=== PATIENT | female | born 1985 | race Hispanic/Latino ===

== ENCOUNTER 2018-04-20 14:11 | Inpatient (IN) | payer OTHER ==
[2018-04-20 16:10] LABS: Hematocrit 35.7 % (30.3-42.9); Hemoglobin 12.6 gm/dl (10.1-14.3); Lymphocytes # (Auto) 0.9 K/mm3 (1.2-5.4); Lymphocytes % (Auto) 10.5 % (13.4-35.0); Mean Corpuscular HGB Conc 35 % (30-34); Mean Corpuscular Hemoglobin 31 pg (28-32); Mean Corpuscular Volume 89 fl (79-97); Monocytes # (Auto) 0.2 K/mm3 (0.0-0.8); Monocytes % (Auto) 2.6 % (0.0-7.3); Platelet Count 231 K/mm3 (140-440); Red Blood Count 4.01 M/mm3 (3.65-5.03); Red Cell Distribution Width 14.5 % (13.2-15.2)
[2018-04-20 16:36] LABS: BUN/Creatinine Ratio 20; Blood Urea Nitrogen 10 mg/dL (7-17); Hemolysis Index 2
--- NOTE | 2018-04-20 17:10 | Emergency Department Report ---
HPI - General Chief Complaint: Medical Clearance Time Seen by Provider: 04/20/18 14:52 - HPI HPI: 33-year-old female presents to the emergency department from [facility] with complaint of some painful left frontal neck swelling. This is been going on since the patient injected herself in the neck with morphine about one week ago. Patient is currently at the psychiatric facility for heroin and Xanax overdose. She denies any fever, nausea, vomiting or shortness of breath or any trouble swallowing. She has a past history of depression, bipolar disorder and hepatitis C. She did not take anything and was not given anything for her symptoms prior to presentation. ED Past Medical Hx - Past Medical History Hx Psychiatric Treatment: Yes (Depression, Bipolar, Hep C) - Social History Smoking Status: Unknown if ever smoked - Medications Home Medications: Home Medications Medication Instructions Recorded Confirmed Last Taken Type Gabapentin [Neurontin] 300 mg PO Q8HR 04/21/18 04/21/18 Unknown History buPROPion SR [Wellbutrin SR] 100 mg PO BID 04/21/18 04/21/18 Unknown History chlorproMAZINE [Thorazine] 50 mg PO Q6HR 04/21/18 04/21/18 Unknown History hydrOXYzine PAMOATE [Vistaril] 25 mg PO Q6HR PRN 04/21/18 04/21/18 Unknown History predniSONE [Deltasone] 60 mg PO QDAY 04/21/18 04/21/18 Unknown History ED Review of Systems ROS: Stated complaint: LUMP ON NECK Other details as noted in HPI Comment: All other systems reviewed and negative Constitutional: denies: chills, fever Eyes: denies: eye pain, eye discharge, vision change ENT: other (neck pain and swelling). denies: ear pain, throat pain Respiratory: denies: cough, shortness of breath, wheezing Cardiovascular: denies: chest pain, palpitations Gastrointestinal: denies: abdominal pain, nausea, diarrhea Genitourinary: denies: urgency, dysuria, discharge Musculoskeletal: denies: back pain, joint swelling, arthralgia Skin: denies: rash, lesions Neurological: denies: headache, weakness, paresthesias Physical Exam - Physical Exam Vital Signs: Vital Signs 04/20/18 15:07 Temperature 98.3 F Pulse Rate 89 Respiratory 15 Rate Blood Pressure 108/76 [Left] O2 Sat by Pulse 96 Oximetry Physical Exam: GENERAL: The patient is well-developed well-nourished. HENT: Normocephalic. Atraumatic. Patient has moist mucous membranes. Oropharynx is clear. No drooling or trismus. EYES: Extraocular motions are intact. Pupils equal reactive to light bilaterally. NECK: Supple. There is a moderate sized area of swelling to the left anterior side of the neck. It is soft but not necessarily fluctuant. It is tender to palpation. There is no overlying erythema or ecchymosis. CHEST/LUNGS: Clear to auscultation. There is no respiratory distress noted. HEART/CARDIOVASCULAR: Regular. There is no tachycardia. There is no murmur. ABDOMEN: Abdomen is soft, nontender. Patient has normal bowel sounds. There is no abdominal distention. SKIN: Skin is warm and dry. There is a moderate sized area of swelling to the left anterior side of the neck. It is soft but not necessarily fluctuant. It is tender to palpation. There is no overlying erythema or ecchymosis. NEURO: The patient is awake, alert, and oriented. The patient is cooperative. The patient has no focal neurologic deficits. The patient has normal speech. MUSCULOSKELETAL: There is no tenderness or deformity. There is no limitation range of motion. There is no evidence of acute injury. ED Course Vital Signs 04/20/18 15:07 Temperature 98.3 F Pulse Rate 89 Respiratory 15 Rate Blood Pressure 108/76 [Left] O2 Sat by Pulse 96 Oximetry - Consultations Consultation #1: 04/21/18 02:23 I spoke with the vascular surgeon/IR physician operations section manager, Dr. Boyd. He listened to the case presentation and took a look at the CT and ultrasound imaging and felt that the patient needs to be somewhere where there is ENT. With the infection or hematoma abutting the trachea and affecting the thyroid, he feels that it may be a case that is not successfully drained and may need OR intervention. I spoke with a ENT at [facility], Dr. Leigh, who has agreed to see the patient as an ER to ER transfer and requested the patient go to [facility]. The transfer center then discussed the case with the ER physician, Dr. Morin, who also has accepted the patient as an ER to ER transfer. ED Medical Decision Making - Lab Data Result diagrams: 04/20/18 15:49 08/29/18 15:49 - Radiology Data Radiology results: report reviewed EXAM: CT NECK WO CON HISTORY: left anterior neck swelling s/p IVDA into neck TECHNIQUE: Noncontrast, spiral CT scanning of the neck. Multiplanar reformations. PRIORS: None. FINDINGS: Examination is limited due to lack of IV contrast administration. Somewhat lobular and complex, low-density and possible cystic focus noted along the left anteroinferior neck subjacent to the sternocleidomastoid muscle, measuring approximately 2.5 x 3 cm in maximal cross-sectional diameter and 4 cm in craniocaudal dimension. This commences at thyroid cartilage level and extends caudally to slightly below left thyroid lobe, with indentation of same. Mild rightward tracheal deviation. Soft tissue edema noted in the surrounding soft tissues and obscuration of normal fat planes. Prominent or mildly enlarged lymph nodes scattered along the left posterior cervical chain probably reactive. No other discrete soft tissue mass or apparent adenopathy. The parapharyngeal, epic cadence analyst, parotid, carotid, retropharyngeal and prevertebral spaces are without significant abnormality. The submandibular and sublingual spaces are grossly unremarkable. Larynx, trachea, thyroid gland and thoracic inlet within normal limits. IMPRESSION: 1. Findings which may represent nonspecific postinflammatory or phlegmonous change and cellulitis in the left anteroinferior neck, with probable inflammatory collection or abscess formation, as described above. Clinical correlation and followup suggested. Transcribed By: [facility] Dictated By: MADHURI GASPAR MD Electronically Authenticated By: MADHURI GASPAR MD Signed Date/Time: 04/20/181939 PROCEDURE: US SOFT TISSUE HEAD AND NECK TECHNIQUE: Focused real-time sonography in multiple planes of the soft tissues of the left neck was performed with image documentation. HISTORY: Left anterior neck swelling. COMPARISON: CT scan dated 04/20/2018. FINDINGS: Heterogeneous complex mass in the left neck adjacent to the thyroid measuring 6.4 x 3.1 x 4.4 cm. IMPRESSION: Heterogeneous complex mass in the left neck adjacent to the thyroid, felt to correspond to CT findings. Consider hematoma, complex cystic lesion, or abscess. Transcribed By: [facility] Dictated By: LEANNE STROUD MD Electronically Authenticated By: LEANNE STROUD MD Signed Date/Time: 04/20/18 1962 - Medical Decision Making This patient presented from her psychiatric hospital with complaint of left- sided painful neck swelling that has been going on over the past week since she injected some morphine into that area of her neck. Vital signs stable including being afebrile. Labs are mostly unremarkable including no leukocytosis, anemia, electrolyte abnormalities, renal insufficiency. Urine drug screen is positive for amphetamines and benzodiazepine. The patient has a history of IV drug abuse and it is very difficult to obtain IV access on her. When she first arrived we tried multiple different areas for a peripheral IV and even play some in larger vessels with ultrasound guidance but all of them appear to blow and were not usable for IV contrast. For this reason we did a CT scan of the neck without contrast came back showing an area of swelling to the left side of the neck that is abutting the trachea and thyroid with some possible mild right tracheal deviation. Differential included abscess, cystic lesion, hematoma. I then tried to differentiate what is going on by using ultrasound once again it shows abscess versus hematoma. We were eventually able to get a peripheral IV and some IV antibiotics were started. As per the consultation section, the interventional radiologist felt that ENT is necessary in this case in case it is not drainable or it requires OR intervention. For this reason, I spoke with ENT through [facility] and the patient has been accepted as an ER to ER transfer. The patient has not had any drooling, trismus , dysphagia, dysphonia or any respiratory distress or compromise. The area of swelling does not have any overlying erythema or ecchymosis and does not appear to be actively expanding. She appears safe for transfer to [facility] at this time. - Differential Diagnosis abscess, cellulitis, malignancy, hematoma, lymphadenopathy Critical Care Time: No Critical care attestation.: If time is entered above; I have spent that time in minutes in the direct care of this critically ill patient, excluding procedure time. ED Disposition Clinical Impression: Localized swelling, mass and lump, neck, History of intravenous drug abuse Disposition: [id number]/TX-70 ANOTHER TYPE HLTHCARE Is pt being admited?: No Condition: Fair Time of Disposition: 02:33
[2018-04-20 17:11] LABS: Bacteria,Urine 2+ /HPF (Negative); Bilirubin,Urine NEG (Negative); Blood,Urine MOD (Negative); Color,Urine Yellow (Yellow); HCG Qualitative,Urine Negative (Negative); Hyaline Casts,Urine 3 /LPF; Mucus,Urine FEW /HPF; Protein,Urine <15 mg/dL mg/dL (Negative); Sperm,Urine FEW /HPF (NP)
[2018-04-20 17:26] LABS: Cannabinoid Screen,Urine PRESUMPTIVE NEGATIVE; Cocaine Screen,Urine PRESUMPTIVE NEGATIVE; Methadone Screen,Urine PRESUMPTIVE NEGATIVE; Opiate Screen,Urine PRESUMPTIVE NEGATIVE
[2018-04-20 17:49] LABS: Amphetamine Screen,Urine PRESUMPTIVE POSITIVE; Benzodiazepines Screen,Urine PRESUMPTIVE POSITIVE
--- NOTE | 2018-04-20 19:41 | Cat Scan Report ---
FINAL REPORT EXAM: CT NECK WO CON HISTORY: left anterior neck swelling s/p IVDA into neck TECHNIQUE: Noncontrast, spiral CT scanning of the neck. Multiplanar reformations. PRIORS: None. FINDINGS: Examination is limited due to lack of IV contrast administration. Somewhat lobular and complex, low-density and possible cystic focus noted along the left anteroinferior neck subjacent to the sternocleidomastoid muscle, measuring approximately 2.5 x 3 cm in maximal cross-sectional diameter and 4 cm in craniocaudal dimension. This commences at thyroid cartilage level and extends caudally to slightly below left thyroid lobe, with indentation of same. Mild rightward tracheal deviation. Soft tissue edema noted in the surrounding soft tissues and obscuration of normal fat planes. Prominent or mildly enlarged lymph nodes scattered along the left posterior cervical chain probably reactive. No other discrete soft tissue mass or apparent adenopathy. The parapharyngeal, lead medical technologist, parotid, carotid, retropharyngeal and prevertebral spaces are without significant abnormality. The submandibular and sublingual spaces are grossly unremarkable. Larynx, trachea, thyroid gland and thoracic inlet within normal limits. IMPRESSION: 1. Findings which may represent nonspecific postinflammatory or phlegmonous change and cellulitis in the left anteroinferior neck, with probable inflammatory collection or abscess formation, as described above. Clinical correlation and followup suggested.
[2018-04-20] MEDS ORDERED: TORADOL IM ONE (20:10)
[2018-04-20] MEDS ORDERED: TORADOL ONE (20:12)
--- NOTE | 2018-04-20 23:11 | Ultrasound Report ---
FINAL REPORT PROCEDURE: US SOFT TISSUE HEAD AND NECK TECHNIQUE: Focused real-time sonography in multiple planes of the soft tissues of the left neck was performed with image documentation. HISTORY: Left anterior neck swelling. COMPARISON: CT scan dated 04/20/2018. FINDINGS: Heterogeneous complex mass in the left neck adjacent to the thyroid measuring 6.4 x 3.1 x 4.4 cm. IMPRESSION: Heterogeneous complex mass in the left neck adjacent to the thyroid, felt to correspond to CT findings. Consider hematoma, complex cystic lesion, or abscess.
--- NOTE | 2018-04-20 23:40 | History and Physical Report ---
Medications and Allergies Allergies Allergy/AdvReac Type Severity Reaction Status Date / Time haloperidol [From Haldol] Allergy Unknown Verified 04/20/18 14:55 ondansetron [From Zofran] Allergy Unknown Verified 04/20/18 14:55 ziprasidone [From Geodon] Allergy Unknown Verified 04/20/18 14:55 Exam - Constitutional Vitals: Temp Pulse Resp BP Pulse Ox 97.7 F 77 18 115/67 98 04/20/18 19:15 04/20/18 19:15 04/20/18 19:15 04/20/18 22:09 04/20/18 21:00 Results - Labs CBC & Chem 7: 04/20/18 15:49 04/20/18 15:49 Labs: Abnormal lab results 04/20/18 04/20/18 04/20/18 Range/Units 15:49 15:49 15:49 MCHC 35 H (30-34) % Lymph % (Auto) 10.5 L (13.4-35.0) % Lymph # 0.9 L (1.2-5.4) K/mm3 Seg Neutrophils % 86.9 H (40.0-70.0) % Creatinine 0.5 L (0.7-1.2) mg/dL Glucose 138 H (65-100) mg/dL Urine WBC (Auto) (0.0-6.0) /HPF U Epithel Cells (Auto) (0-13.0) /HPF Acetaminophen < 5.0 L (10.0-30.0) ug/mL 04/20/18 Range/Units Unknown MCHC (30-34) % Lymph % (Auto) (13.4-35.0) % Lymph # (1.2-5.4) K/mm3 Seg Neutrophils % (40.0-70.0) % Creatinine (0.7-1.2) mg/dL Glucose (65-100) mg/dL Urine WBC (Auto) 24.0 H (0.0-6.0) /HPF U Epithel Cells (Auto) 15.0 H (0-13.0) /HPF Acetaminophen (10.0-30.0) ug/mL
[2018-04-21] MEDS ORDERED: CLEOCIN 900 MG/50 mL 900 MG/50 ML BAG IV ONE (00:07)
[2018-04-21] MEDS ORDERED: TYLENOL PO ONE (00:08)
[2018-04-21 02:14] VITALS: BP 118/62
== END 2018-04-21 03:21 | disposition short-term general hospital (02) | DRG 607 ==
LOC: ED 14:11 → EEVIPCON 23:40 → 4A 23:40
PROVIDERS: ADMIT Internal Medicine; ATTEND Internal Medicine
DX: R22.1 Localized swelling, mass and lump, neck (principal); F31.30 Bipolar disorder, current episode depressed, mild or moderate severity, unspecified; B19.20 Unspecified viral hepatitis C without hepatic coma; Z79.899 Other long term (current) drug therapy
CPT/HCPCS: 36415; 70490; 76536; 80048; 80307; 80320; 81001; 81025; 85025; 87086; G0480; J1885